=== PATIENT | female | born 2000 | race Caucasian/White ===

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

== ENCOUNTER 2021-01-10 16:18 | Emergency (ER) | payer OTHER, SELFPAY ==
[2021-01-10 16:37] VITALS: BP 129/80; PULSE 82; RESP 21; TEMP 37.1; O2SAT 98; BMI 43.9
[2021-01-10 17:01] LABS: UTC Strep Screen (Rapid) Positive (Negative)
[2021-01-10 17:08] VITALS: BP 000/00; PULSE 79; RESP 18; TEMP 36.6
--- NOTE | 2021-01-10 17:12 | HMH.EDUTC ---
[place] Disposition Clinical Impression: Ingrown nail of great toe of right foot, Strep throat Disposition: Home, Self-Care Condition on Discharge: Good Instructions: DI for Sinusitis Additional Instructions: Drink plenty of fluids. Take tylenol or ibuprofen for pain or fever. Take the medications as directed. Follow up with your regular doctor. GO TO THE ER FOR ANY WORSENING SYMPTOMS I put in a referral to Dr. Blackburn (podiatry). Please call her office and schedule an appointment to have your toe seen about there. Prescriptions: Brompheniramine/Pseudoephed/Dm [Bromfed Dm Cough Syrup] 5 ml PO Q6HP PRN #240 syrup PRN Reason: Cough Transmission Status: Received by [facility] Mupirocin [Bactroban 2% Ointment 22gm tube] 1 applicatio TP TID 7 Days #1 tube Transmission Status: Received by [facility] Cefdinir [Omnicef 300mg Capsule] 300 mg PO BID #20 cap Transmission Status: Received by [facility] Referrals: Provider,Referral, MD [Primary Care Provider] - Time of Disposition: 17:18 Medical Decision Making - Medical Records Medical records reviewed: No: I reviewed the patient's medical records. - Kei Inquiry Pt receiving controlled substance: No Vital Signs: 01/10/21 16:37 01/10/21 17:08 Temperature 98.7 F 98 F Temperature Source Oral Pulse Rate 79 Pulse Rate [Left] 82 Respiratory Rate 21 18 Blood Pressure 000/00 L Blood Pressure [Right Arm] 129/80 Blood Pressure Mean [Right Arm] 96 Blood Pressure Source [Right Arm] Automatic Cuff Blood Pressure Position [Right Arm] Sitting 02 Sat by Pulse Oximetry 98 - Lab Data Lab results reviewed: Yes: I reviewed the patient's lab results. Lab Results 01/10/21 16:33: Strep Scn Rapid Clinic Positive A Orders (Tests/Meds): ED MEDICATIONS Discontinued Medications Generic Name Dose Route Start Last Admin Trade Name Freq PRN Reason Stop Dose Admin Neomycin/Polymyxin/Bacitracin 2 each 01/10/21 17:06 01/10/21 17:07 Neosporin Ointment 0.9gm Udp TP 01/10/21 17:07 2 each ONCE ONE Administration [place] HPI - General Stated complaint: sore throat, cough headache ingrown toe nail Time Seen by Provider: 01/10/21 17:12 Mode of Arrival: Ambulatory Source of Information: Patient Limitations: No Limitations Description of Symptoms (Recalled from Triage Doc. by RN): pt c/o a sore throat, cough, SAHNI, stomache ache and a sore TOE(R great toe). HEENT Symptoms (Recalled from RN notes): Yes (sore throat and SAHNI) Resp Symptoms (Recalled from RN notes): No Skin Symptoms (Recalled from RN notes): No MS Symptoms (Recalled from RN notes): Yes (R great toe is sore) Functional Status (Recalled from RN notes): na - History of Present Illness Provider Complaint: She c/o sore throat, head ache and sinus congestion for the past 5 days. She states that she has been getting these symptoms about once per month for the past several months. She is taking an allergy medication. She also states that she has an ingrown toe nail on her right great toe. This has been a chronic thing, but over the past 1 week it has became infected. - Related Data Previous Rx's Medication Instructions Recorded Sulfamethoxazole/Trimethoprim 1 each PO BID #20 tab 02/11/18 [Bactrim DS tablet] Brompheniramine/Pseudoephed/Dm 5 ml PO Q6HP PRN #240 syrup 01/10/21 [Bromfed Dm Cough Syrup] Cefdinir [Omnicef 300mg Capsule] 300 mg PO BID #20 cap 01/10/21 Mupirocin [Bactroban 2% Ointment 1 applicatio TP TID 7 Days #1 tube 01/10/21 22gm tube] Allergies Allergy/AdvReac Type Severity Reaction Status Date / Time PCN (PENICILLIN) Allergy Mild Uncoded 06/23/17 15:09 - Worker's Comp Is this a Worker's Comp case?: No [facility] History - Hepatitis A Screen Drug use history?: No High risk sexual behaviors?: No History of sexually transmitted infection?: No Currently employed?: No Childcare worker?: No Do you have indo
== END 2021-01-10 17:23 | disposition home or self-care (01) ==
PROVIDERS: Emergency Provider Nurse Practitioner Family
DX: L60.0 Ingrowing nail (principal); J02.0 Streptococcal pharyngitis
CPT/HCPCS: 87880; 99202; G0463

== ENCOUNTER → 2021-04-23 11:24 | Outpatient (CLI) | payer OTHER, SELFPAY ==
[2021-04-23 11:50] LABS: Basophils # 0.1 K/mm3 (0-0.2); Eosinophils # 0.8 K/mm3 (0.0-0.4); Eosinophils % 8.4 % (0.1-12.0); Hemoglobin 14.4 g/dL (12.2-16.2); Lymphocytes # 1.6 K/mm3 (0.7-4.5); Lymphocytes % 15.5 % (10-50); Mean Corpuscular HGB Conc 32.1 g/dL (31.8-35.4); Mean Corpuscular Hemoglobin 27.6 pg (27.0-31.2); Mean Platelet Volume 6.9 fl (7.4-10.4); Monocytes # 0.6 K/mm3 (0.1-1.0); Monocytes % 6.2 % (1.7-9.3); Neutrophils # 6.9 K/mm3 (1.8-7.8); Neutrophils % 68.8 % (37.0-80.0); Platelet Count 488 K/mm3 (142-424); Red Blood Count 5.23 M/mm3 (4.20-5.40); Red Cell Distribution Width 12.7 % (11.5-17.5)
[2021-04-23 12:19] LABS: Chloride 105 mmol/L (98-107); Potassium 4.5 mmoL/L (3.5-5.1); Sodium 140 mmol/L (136-145)
[2021-04-23 12:22] LABS: Alanine Aminotransferase 27 U/L (12-78); Albumin Level 4.2 g/dl (3.5-5.0); Albumin/Globulin Ratio 1.5 (1.1-1.8); Alkaline Phosphatase 71 U/L (38-126); Anion Gap 14.5 mEq/L (5-15); Aspartate Amino Transferase 28 U/L (14-36); Bilirubin,Total 0.3 mg/dl (0.2-1.3); Blood Urea Nitrogen 12 mg/dl (7-17); Carbon Dioxide 25 mmol/L (22.0-30.0); Cholesterol 202 mg/dl (140-200); Estimated Glomerular Filt Rate 107 ml/min (>60); GFR (African American) 129 ML/MIN (>60); Globulin 2.8 g/dL (1.3-3.2); Triglycerides 145 mg/dl (30-150); VLDL Cholesterol 29 mg/dL (0-40)
[2021-04-23 12:23] LABS: Calcium 9.6 mg/dl (8.4-10.2); Chol/HDL Ratio 3.9 (1-3.5); Glucose 88 mg/dl (74-100); HDL Cholesterol 52 mg/dl (40-60)
[2021-04-23 12:36] LABS: Direct LDL Cholesterol 109.04 mg/dL (100-129)
[2021-04-23 12:50] LABS: Hemoglobin A1C 6.8 % (4.0-6.0)
== END ==
PROVIDERS: Visit Provider Internal Medicine Adolescent Medicine
DX: E66.9 Obesity, unspecified (principal); R73.9 Hyperglycemia, unspecified; Z68.30 Body mass index [BMI] 30.0-30.9, adult
CPT/HCPCS: 36415; 80053; 80061; 83036; 85025

== ENCOUNTER 2021-08-15 11:25 | Emergency (ER) | payer OTHER, SELFPAY ==
[2021-08-15 12:06] VITALS: BP 146/91; PULSE 89; RESP 18; TEMP 37.1; O2SAT 98; BMI 42.4
[2021-08-15 13:02] LABS: Strep Scrn Group A (Rapid) Negative (Negative)
--- NOTE | 2021-08-15 13:10 | HMH.EDUTC ---
[facility] Disposition Clinical Impression: Otitis media Qualifiers: Otitis media type: unspecified Laterality: left Qualified Code(s): H66.92 - Otitis media, unspecified, left ear Disposition: Home, Self-Care Condition on Discharge: Good Instructions: Middle Ear Infection Additional Instructions: *Monitor Temp, Over the counter Motrin or Tylenol as directed/as needed Tylenol every 4 hours and Motrin every 6 hours (as long as your family doctor has told you that you can take it) for fever or pain. and straight to ER if unable to lower temp less than 101.0 after medication given *Warm salt water gargles may help to soothe the throat *Throat Lozenges *Warm fluids like tea with honey may help to soothe the throat *Sleep elevated *Humidifier/Vaporizer *Flonase 2 sprays in each nostril daily but be aware that it may take 2-3 days before you notice improvement *Bromfed may cause drowsiness. Know how it effects you (your child) before driving, caring for small child, or sending your child to school. Not other antihistamines/allergy medications while taking bromfed Your throat swab was sent for culture. Those results are typically sent to your primary care. Be sure to follow up in 2-3 days with your family doctor/primary care physician if no improvement so they can review those result and treat if necessary. If you don?t have a primary care doctor, I recommend you get one but in the mean time, you will have to return to a walk in clinic Follow up IMMEDIATELY for new or worsening symptoms or no Noticeable improvement over the next 48-72 hours. 911 for difficulty breathing or swallowing You were tested for today for COVID19 your test result should be back in the next 24-72 hours, you may check your results on the [facility] my health portal if you have trouble logging on you may call support If you are positive someone from the hospital will be calling you Make sure to take your Vitamins Vit. C Vit D and Zinc if you can take them Prescriptions: Fluticasone Propionate [Flonase 50mcg nasal spray 16gm] 1 spr NS DAILY #1 each Transmission Status: Pending to [facility] Cefdinir [Omnicef 300mg Capsule] 300 mg PO BID #20 cap Transmission Status: Pending to [facility] Referrals: Armando Wyatt MD [Primary Care Provider] - As needed Forms: Work/School Release Time of Disposition: 13:20 Medical Decision Making - Kei Inquiry Pt receiving controlled substance: No Kei was queried for this patient: No Vital Signs: 08/15/21 12:06 Temperature 98.7 F Temperature Source Oral Pulse Rate [Left] 89 Respiratory Rate 18 Blood Pressure [Right Arm] 146/91 H Blood Pressure Mean [Right Arm] 109 02 Sat by Pulse Oximetry 98 - Lab Data Lab results reviewed: Yes: I reviewed the patient's lab results. Lab Results 08/15/21 12:11: Group A Strep Rapid Negative Orders (Tests/Meds): ORDERS Category Date Time Status Covid-19 Nasal PCR ([facility]) Routine Lab 08/15/21 12:11 Received Strep Screen Confirmation Stat Micro 08/15/21 12:11 Received [facility] UTC HPI - General Stated complaint: cough,sore throat,stuffy Time Seen by Provider: 08/15/21 13:10 Mode of Arrival: Ambulatory Source of Information: Patient Limitations: No Limitations Description of Symptoms (Recalled from Triage Doc. by RN): pt c/o a dry cough, sore throat, and SAHNI x4 days. HEENT Symptoms (Recalled from RN notes): Yes Resp Symptoms (Recalled from RN notes): Yes Skin Symptoms (Recalled from RN notes): No MS Symptoms (Recalled from RN notes): No Functional Status (Recalled from RN notes): wnl - History of Present Illness Provider Complaint: Patient states that she has been having headache, dry cough, sore throat pain and pressure in her ears and headache States that today she was still feeling bad so she came in to get checked out - Related Data Home Medications Medication Instructions Recorded Confirmed loratadine 10 mg tablet 10 mg PO tab 04/23/21
[2021-08-15 13:24] VITALS: BP 146/91; PULSE 89; RESP 18; TEMP 37.1
== END 2021-08-15 13:27 | disposition home or self-care (01) ==
PROVIDERS: Emergency Provider Nurse Practitioner; PCP Internal Medicine Adolescent Medicine
DX: H66.92 Otitis media, unspecified, left ear (principal); R51.9 Headache, unspecified; Z20.822 Contact with and (suspected) exposure to COVID-19
CPT/HCPCS: 87430; 99203; C9803; G0463; U0003; U0005

== ENCOUNTER → 2021-08-15 15:49 | Outpatient (CLI) | payer OTHER, SELFPAY ==
[2021-08-15 19:13] LABS: Hemoglobin A1C 5.1 % (4.0-6.0)
[2021-08-17 18:20] LABS: C-Peptide 14.2 ng/mL (1.1-4.4)
== END ==
PROVIDERS: PCP Internal Medicine Adolescent Medicine; Visit Provider Internal Medicine Adolescent Medicine
DX: E11.9 Type 2 diabetes mellitus without complications (principal); Z79.84 Long term (current) use of oral hypoglycemic drugs
CPT/HCPCS: 36415; 83036; 83525; 84681

== ENCOUNTER 2023-07-07 06:55 | Outpatient (CLI) | payer OTHER, SELFPAY ==
[2023-07-07 17:29] LABS: Adenovirus,PCR Not Detected (NotDetected); Coronavirus 19, PCR Not Detected (NotDetected); Coronavirus NL63 Not Detected (NotDetected); Coronavirus OC43 Not Detected (NotDetected); Coronovirus HKU1,PCR Not Detected (NotDetected); Human Metapneumovirus Not Detected (NotDetected); Influenza A, PCR Not Detected (NotDetected); Influenza AH1, 2009 Not Detected (NotDetected); Influenza AH1, PCR Not Detected (NotDetected); Influenza AH3,PCR Not Detected (NotDetected); Influenza B, PCR Not Detected (NotDetected); Parainfluenza 1, PCR Not Detected (NotDetected); Parainfluenza 2, PCR Not Detected (NotDetected); Parainfluenza 3, PCR Not Detected (NotDetected); Parainfluenza 4, PCR Not Detected (NotDetected); Respiratory Syncytial Virus Not Detected (NotDetected); Rhinovirus/Enterovirus Not Detected (NotDetected)
[2023-07-07 19:34] LABS: Coronavirus 229E Detected (NotDetected)
== END 2023-07-07 23:59 ==
LOC: LAB.DROPOF 07-08 06:56
PROVIDERS: PCP Internal Medicine Adolescent Medicine; Visit Provider Nurse Practitioner Family
DX: H65.193 Other acute nonsuppurative otitis media, bilateral (principal); J98.8 Other specified respiratory disorders; R05.9 Cough, unspecified; B34.2 Coronavirus infection, unspecified
CPT/HCPCS: 87632; 87635

== ENCOUNTER 2023-08-04 10:45 | Outpatient (CLI) | payer OTHER, SELFPAY ==
--- NOTE | 2023-08-04 10:48 | US_ITS ---
PROCEDURE: US PELVIC CLINICAL INDICATION: COMPARISON: No exams were available for comparison FINDINGS: Transabdominal sonographic images of the pelvis were obtained. Uterus: Anteverted measuring 6.6 cm x 3.1 cm x 4.9 cm. The endometrium measures 14 mm. Right ovary: 4.1 cm x 2.8 cm x 2.4 cm. The right ovary has a polycystic appearance. Left ovary 3.9 cm x 2.6 cm x 1.8 cm. The left ovary has a polycystic appearance. Both ovaries are seen and appear polycystic. Doppler flow to both ovaries is seen. No fluid in the cul-de-sac. IMPRESSION: 1. Anteverted uterus normal in shape and size. 2. The endometrium is likely premenstrual and measures 14 mm. 3. Both ovaries are seen and appear polycystic. 4. No fluid in the cul-de-sac. Dictated by: Yonathan Diego MD 08/04/2023 14:04 Yonathan Diego MD in OV 08/04/2023 14:04
== END 2023-08-04 23:59 ==
LOC: RAD 10:45
PROVIDERS: PCP Internal Medicine Adolescent Medicine; Visit Provider Obstetrics & Gynecology
DX: N93.9 Abnormal uterine and vaginal bleeding, unspecified (principal); Z87.42 Personal history of other diseases of the female genital tract
CPT/HCPCS: 76856

== ENCOUNTER 2023-12-14 12:04 | Outpatient (CLI) | payer OTHER, SELFPAY ==
[2023-12-14 12:42] LABS: Basophils # 0.1 K/mm3 (0-0.2); Basophils % 1.3 % (0.1-2.0); Eosinophils # 0.2 K/mm3 (0.0-0.4); Eosinophils % 2.4 % (0.1-12.0); Hematocrit 42.3 % (37.0-47.0); Hemoglobin 13.7 g/dL (12.2-16.2); Lymphocytes # 1.8 K/mm3 (0.7-4.5); Lymphocytes % 22.9 % (10-50); Mean Corpuscular HGB Conc 32.5 g/dL (31.8-35.4); Mean Corpuscular Hemoglobin 26.6 pg (27.0-31.2); Mean Platelet Volume 7.5 fl (7.4-10.4); Monocytes # 0.5 K/mm3 (0.1-1.0); Monocytes % 5.8 % (1.7-9.3); Neutrophils # 5.3 K/mm3 (1.8-7.8); Neutrophils % 67.6 % (37.0-80.0); Platelet Count 504 K/mm3 (142-424); Red Blood Count 5.15 M/mm3 (4.20-5.40); Red Cell Distribution Width 14.3 % (11.5-17.5); White Blood Count 7.8 K/mm3 (4.8-10.8)
[2023-12-14 13:01] LABS: Alanine Aminotransferase 29 U/L (12-78); Albumin Level 3.8 g/dl (3.5-5.0); Albumin/Globulin Ratio 1.4 (1.1-1.8); Alkaline Phosphatase 61 U/L (38-126); Anion Gap 12.3 mEq/L (5-15); Aspartate Amino Transferase 25 U/L (14-36); Bilirubin,Total 0.4 mg/dl (0.2-1.3); Blood Urea Nitrogen 10 mg/dl (7-17); Calcium 9.6 mg/dl (8.4-10.2); Carbon Dioxide 29 mmol/L (22.0-30.0); Chloride 102 mmol/L (98-107); Chol/HDL Ratio 4.8 (1-3.5); Cholesterol 193 mg/dl (140-200); Estimated Glomerular Filt Rate 69 ml/min (>60); GFR (African American) 83 ML/MIN (>60); Globulin 2.7 g/dL (1.3-3.2); Glucose 82 mg/dl (74-100); HDL Cholesterol 40 mg/dl (40-60); Potassium 4.3 mmoL/L (3.5-5.1); Sodium 139 mmol/L (136-145); Total Protein,Serum 6.5 g/dl (6.3-8.2); Triglycerides 149 mg/dl (30-150); VLDL Cholesterol 30 mg/dL (0-40)
[2023-12-14 13:12] LABS: Direct LDL Cholesterol 111.05 mg/dL (100-129)
[2023-12-14 13:17] LABS: 25-OH Vitamin D, Total 34.2 ng/mL (30-100)
[2023-12-14 13:32] LABS: Thyroid Stimulating Hormone 1.64 uIU/mL (0.465-4.68)
[2023-12-14 13:51] LABS: Vitamin B12 278 pg/mL (239-931)
== END 2023-12-14 23:59 | disposition home or self-care (01) ==
PROVIDERS: PCP Internal Medicine Adolescent Medicine; Visit Provider Physician Assistant
DX: R51.9 Headache, unspecified (principal); Z87.42 Personal history of other diseases of the female genital tract; Z83.3 Family history of diabetes mellitus; Z83.438 Family history of other disorder of lipoprotein metabolism and other lipidemia; E66.01 Morbid (severe) obesity due to excess calories; Z68.42 Body mass index [BMI] 45.0-49.9, adult
CPT/HCPCS: 80050; 80053; 80061; 82306; 82607; 83036; 84443; 85025

== ENCOUNTER 2025-03-22 11:02 | Outpatient (CLI) | payer OTHER, SELFPAY ==
--- OUTSIDE RECORDS SUMMARY | 2024-10-08 17:30 | XMS_ITS ---
Author Organization [facility] Address [address] [facility] [address] [place] [address] Care Team Providers Care Regulatory Affairs Intern Name Role Phone Marilu Herron Primary Care Provider Migration, Provider Unavailable Unavailable Allergies Allergen (clinical drug ingredient) Drug/Non Drug Allergy documented on EMR Reaction Allergy Type Onset Date Status Penicillin swelling Drug Allergy [facility] Encounter Medications Medication SIG (Take, Route, Frequency, Duration) Notes Start Date End Date Status Cetirizine HCl 10 MG 1 tab(s) orally at bedtime; Duration: 30 days Active Vitamin D3 Gummies 50 MCG CHEW AND SWALLOW 1 GUMMY BY MOUTH EVERY DAY; Duration: 90 *Please review and pick correct [facility]ati [facility]. If intended option is not shown, discontinue and re-order from Quick Search* Active Rizatriptan Benzoate 10 MG 1 tab(s) orally once a day; Duration: 30 days 05/07/2024 Active Levothyroxine Sodium 50 MCG (0.05 MG) 1 CAP(S) ORALLY ONCE A DAY; Duration: 30 DAY(S) *Please review and pick correct strength-formulati on from [employer] options. If intended option is not shown, discontinue and re-order from Quick Search* Active NURTEC ODT 75 MG 1 TAB(S) ORALLY ONCE EVERY OTHER DAY; Duration: 30 DAYS *Please review for potential replacement for e-prescription and drug interaction check* Active Slynd 4 MG 1 tab(s) orally once a day Active ONE TOUCH TEST STRIPS N/A FOR DIABETIC TESTING FINGERSTICK ONCE DAILY; Duration: 30 DAYS *Please review for potential replacement for e-prescription and drug interaction check* 01/23/2022 Active Wellbutrin XL 300 MG 1 tab(s) orally every 24 hours; Duration: 90 day(s) Active Acetaminophen 325 MG 1 or 2 tabs orally every 4 hours prn Active Encounters Encounter Location Date Provider Diagnosis [facility] [address] [facility] [address] [facility] [address] [place] [address] 10/08/2024 Provider Migration Seasonal allergies J30.2 and Migraine G43.909 Assessments Encounter Date Diagnosis (ICD Code) Assessment Notes Treatment Notes Treatment Clinical Notes Section Notes 10/08/2024 Seasonal allergies (ICD-10 - J30.2) 10/08/2024 Migraine (ICD-10 - G43.909) Plan Of Treatment Medication Medication Name Sig Start Date Stop Date Notes Cetirizine HCl 10 MG 1 tab(s) orally at bedtime; Duration: 30 days NURTEC ODT 75 MG 1 TAB(S) ORALLY ONCE EVERY OTHER DAY; Duration: 30 DAYS *Please review for potential replacement for e-prescription and drug interaction check* Next Appt Details Provider Name:Armando Wyatt, 03/22/2025 12:15:00 PM, [address] [facility] [address] [facility], [address], [place], [address], Progress Notes * Freida CHAVEZ GDOB:[birth year] (24 yo F)Acc No.[id number]:10/08/2024 Patient: Freida ALANIS Provider: Juan sadler Migration :2000 A ge:23 Y S ex:Female Date:10/08/2024 Address:[address] [place] [address] [place], [place]-[id number] Pcp:Marilu Herron Subjective: * Chief Complaints: * 1 . Multum To Med[employer] Conversion Encounter. * Medical History: * Medications: T aking Acetaminophen 325 MG Tablet 1 or 2 tabs orally every 4 hours prn , Taking Slynd 4 MG Tablet 1 tab(s) orally once a day , Taking ONE TOUCH TEST STRIPS N/A N/A FOR DIABETIC TESTING FINGERSTICK ONCE DAILY , Notes to Pharmacist: *Please review for potential replacement for e-prescription and drug interaction check*, Taking Wellbutrin XL 300 MG Tablet Extended Release 24 Hour 1 tab(s) orally every 24 hours , Taking Vitamin D3 Gummies 50 MCG TABLET, CHEWABLE CHEW AND SWALLOW 1 GUMMY BY MOUTH EVERY DAY , Notes to Pharmacist: *Please review and pick correct strength- formulation from [employer] options. If intended option is not shown, discontinue and re-order from Quick Search*, Taking Rizatriptan Benzoate 10 MG Tablet 1 tab(s) orally once a day , Taking Levothyroxine Sodium 50 MCG (0.05 MG) CAPSULE 1 CAP(S) ORALLY ONCE A DAY , Notes to Pharmacist: *Please review and pick correct strength-formulation from [employer] options. If intended option is not shown, discontinue and re-order from Quick Search* * Allergies: P enicillin: swelling. Objective: * Vitals: Assessment: * Assessment: 1. S easonal allergies - J30.2 2 . M igraine - G43.909 Plan: * Treatment: 2. M igraine Start NURTEC ODT TABLET, DISINTEGRATING, 75 MG, 1 TAB(S), ORALLY, ONCE EVERY OTHER DAY, 30 DAYS, 16, Refills 1, Notes to Pharmacist: *Please review for potential replacement for e-prescription and drug interaction check*. * * Electronic signature of Nery ulloa Migration on 03/22/2025 at 11:08 AM EDT Sign off status: Pending * Provider: Juan sadler Migration Date: 0 10/08/2024 Generated for Paulo palencia/Debbie/Cecilitting on: 0 03/22/2025 11:08 AM EDT
--- OUTSIDE RECORDS SUMMARY | 2025-02-22 10:15 | XMS_ITS ---
Author Organization [facility] Address [address] [facility] [address] [place] [address] Care Team Providers Care Drafter Civil (Cad) Name Role Phone Marilu Herron Primary Care Provider [phone] Armando Wytat [phone] Allergies Allergen (clinical drug ingredient) Drug/Non Drug Allergy documented on EMR Reaction Allergy Type Onset Date Status Penicillin swelling Drug Allergy Active REASON FOR VISIT 4 month follow up Medications Medication SIG (Take, Route, Frequency, Duration) Notes Start Date End Date Status Cetirizine HCl 10 MG 1 tab(s) orally at bedtime; Duration: 30 days Active Levothyroxine Sodium 50 mcg TAKE ONE TABLET BY MOUTH ONCE DAILY; Duration: 30 Active Rizatriptan Benzoate 10 MG 1 tab(s) orally once a day; Duration: 30 days 05/07/2024 Active NURTEC ODT 75 MG 1 TAB(S) ORALLY ONCE EVERY OTHER DAY; Duration: 30 DAYS *Please review for potential replacement for e-prescription and drug interaction check* Active Vitamin D3 Adult Gummies 25 MCG (1000 UT) 1 tablet Orally Once a day; Duration: 90 days Active ONE TOUCH TEST STRIPS N/A FOR DIABETIC TESTING FINGERSTICK ONCE DAILY; Duration: 30 DAYS *Please review for potential replacement for e-prescription and drug interaction check* 01/23/2022 Active Vyvanse 40 MG 1 capsule in the morning Orally Once a day; Duration: 30 days 02/22/2025 Active Slynd 4 MG 1 tab(s) orally once a day Active Vital Signs Temperature 97.7 degrees Fahrenheit 02/23/20 25 Blood pressure systolic 132 mm Hg 02/23/20 25 Blood pressure diastolic 88 mm Hg 025 Heart Rate 120 /min 02/22/2025 Height 61 in 02/22/2025 Weight 269 lbs 02/22/2025 BMI 50.82 kg/m2 02/22/2025 Encounters Encounter Location Date Provider Diagnosis [facility] [address] [place], [place] [address] 02/22/2025 Armando Wyatt ADHD (attention deficit hyperactivity disorder), combined type F90.2 ; Obesity, morbid, BMI 40.0-49.9 E66.01 ; Seasonal allergic rhinitis, unspecified allergic rhinitis trigger J30.2 ; Hypothyroidism, unspecified type E03.9 ; Pervasive developmental disorder F84.9 and Routine medical exam Z00.00 Assessments Encounter Date Diagnosis (ICD Code) Assessment Notes Treatment Notes Treatment Clinical Notes Section Notes 02/22/2025 ADHD (attention deficit hyperactivity disorder), combined type (ICD-10 - F90.2) History of ADHD during school. Did fairly well with controlled substances for stimulant medications but I took her off of these after school. Her weight has been stable but she is not able to lose weight. Does have significant evidence of obesity and probable binge eating. Restart Vyvanse, short-term follow-up. Given complexity and possible side effect profile of Zepbound and other GLP's I feel that Vyvanse is a safer option for her at this point 02/22/2025 Obesity, morbid, BMI 40.0-49.9 (ICD-10 - E66.01) See notes above. Discussed diet and exercise 02/22/2025 Seasonal allergic rhinitis, unspecified allergic rhinitis trigger (ICD-10 - J30.2) 02/22/2025 Hypothyroidism, unspecified type (ICD-10 - E03.9) Clinically euthyroid, had normal thyroid test 3 months ago 02/22/2025 Pervasive developmental disorder (ICD-10 - F84.9) Overall doing well on her own. Not working at this point. Needs continuing fairly substantial support. I do think she would benefit from having her 2 cats. Wrote letter to this effect. 02/22/2025 Routine medical exam (ICD-10 - Z00.00) Non-smoker, does not drive, uses seatbelt in the car, no alcohol, no spot sexually active. See notes above about new medications. Recent labs reviewed. Declines flu shot. Plan Of Treatment Medication Medication Name Sig Start Date Stop Date Notes Vyvanse 40 MG 1 capsule in the mor george Orally Once a day; Duration: 30 days 02/22/2025 Treatment Notes Assessment Notes ADHD (attention deficit hype ractivity disorder), combined type History of ADHD during school. Did fairly well with controlled substances for stimulant medications but I took her off of these after school. Her weight has been stable but she is not able to lose weight. Does have significant evidence of obesity and probable binge eating. Restart Vyvanse, short-term follow-up. Given complexity and possible side effect profile of Zepbound and other GLP's I feel that Vyvanse is a safer option for her at this point Obesity, morbid, BMI 40.0-49.9 See notes above. Discussed diet and exercise Hypothyroidism, unspecified type Clinica lly euthyroid, had normal thyroid test 3 months ago Pervasive developmental disorder Overall doing well on her own. Not working at this point. Needs continuing fairly substantial support. I do think she would benefit from having her 2 cats. Wrote letter to this effect. Routine medical exam Non-smoker, does not drive, uses seatbelt in the car, no alcohol, no spot sexually active. See notes above about new medications. Recent labs reviewed. Declines flu shot. Next Appt Details Follow Up: 4 Weeks, Reason: Provider Name:Armando Wyatt, 03/22/2025 12:15:00 PM, [address] [facility], [address], [place], [address], Progress Notes * Freida CHAVEZ GDOB:[birth year] (24 yo F)Acc No.[id number]:02/22/2025 Progress Notes Patient: Freida ALANIS Provider: Josselin Wyatt MD :2000 A ge:24 Y S ex:Female Date:02/22/2025 Address:[address] [place] [address], [id number] Pcp:Marilu Herron Subjective: * Chief Complaints: * 1 . 4 month follow up. * HPI: g en: Patient is here with her foster grandmother. Overall doing well, did move out to her own apartment about 3 to 4 weeks ago. Feels like she still anxious with this. Overall doing well, wonders about an emotional support letter to keep 2 cats with her. Weight has actually gone down a pound. She has been to see neurology for her headaches and neurologist wonders about whether or not she would be a candidate for Zepbound injections. * Medical History: N ormal and development, ADHD & learning disorder- Had IEP in school- currently unemployed lives with grandmother. * Surgical History: D candace Past Surgical History. * Hospitalization/Major Diagno stic Procedure: H ospitalized at the [facility] for anger issues 2010?. * Family History: F ather: unknown, Bipolar, schizophrenia. M other: alive, Depression, Anxiety and Anger Issues, diagnosed with Diabetes. P aternal Grand Father: unknown. P aternal Grand Mother: unknown. M aternal Grand Father: alive, IDDM, diagnosed with Diabetes. M aternal Grand Mother: alive, IDDM, diagnosed with Diabetes. P aternal uncle: unknown. P aternal aunt: unknown. M aternal uncle: . S iblings: alive, food allergies. 2 sister(s) - healthy. . * Social History: S moking A re you a:: nonsmoker. R ecreational drug use: no. Exercise: no. Home smoke detector use: yes. Caffeine: yes, frequency:Soda rarely. Living Will: No. Alcohol: no. Sexually active: no. Travel outside [place]: no. Occupation: unemployed. * Medications: T aking Slynd 4 MG Tablet 1 tab(s) orally once a day , Taking ONE TOUCH TEST STRIPS N/A N/A FOR DIABETIC TESTING FINGERSTICK ONCE DAILY , Notes to Pharmacist: *Please review for potential replacement for e-prescription and drug interaction check*, Taking Rizatriptan Benzoate 10 MG Tablet 1 tab(s) orally once a day , Taking NURTEC ODT 75 MG TABLET, DISINTEGRATING 1 TAB(S) ORALLY ONCE EVERY OTHER DAY , Notes to Pharmacist: *Please review for potential replacement for e-prescription and drug interaction check*, Taking Cetirizine HCl 10 MG Tablet 1 tab(s) orally at bedtime , Taking Levothyroxine Sodium 50 mcg Tablet TAKE ONE TABLET BY MOUTH ONCE DAILY , Taking Vitamin D3 Adult Gummies 25 MCG (1000 UT) Tablet Chewable 1 tablet Orally Once a day , Discontinued Acetaminophen 325 MG Tablet 1 or 2 tabs orally every 4 hours prn , Discontinued Wellbutrin XL 300 MG Tablet Extended Release 24 Hour 1 tab(s) orally every 24 hours * Allergies: P enicillin: swelling. Objective: * Vitals: N urse: be, Pain: 3, Temp: 97.7, RR: 20, HR: 120, BP: 132/88, Ht: 61, Wt: 269, BMI:50.82. * Examination: G eneral Examination: General P leasant and Cooperative, NAD on RA,. Oral cavity: M oist membranes. Chest: n ormal shape and expansion. Heart: R egular Rate and Rhythm, no murmur, rubs or gallops. HEENT: p harynx and tonsils normal, TM's normal. Lungs: L CTAB, No wheezes, crackles or rhonchi, Good air movement,. Abdomen: S oft, NTND, BSNA, No organomegaly or peritoneal signs.. Neurologic Exam: n o focal signs,, normal sensation, strength, tone and reflexes,, Alert and oriented x 3. Skin: w ithout acute rashes. Peripheral pulses: n ormal (2+) bilaterally. Back: n ormal,. Extremities: n ormal ROM,, no clubbing, no edema,, no foot lesions,. neck s upple,, no thyromegaly,, no lymphadenopathy,. Psych N ormal Mood/Affect. diabetic foot exam V isual exam of foot performed: Y es. Neck s upple, no lymphadenopathy. General Appearance: N AD, pleasant. Assessment: * Assessment: 1. A DHD (attention deficit hyperactivity disorder), combined type - F90.2 (Primary) 2 . O besity, morbid, BMI 40.0-49.9 - E66.01 3 . S easonal allergic rhinitis, unspecified allergic rhinitis trigger - J30.2 4 . H ypothyroidism, unspecified type - E03.9 5 . P ervasive developmental disorder - F84.9 ?6. R outine medical exam - Z00.00 Plan: * Treatment: 2. O besity, morbid, BMI 40.0-49.9 Notes: See notes above. Discussed diet and exercise 3. H ypothyroidism, unspecified type Notes: Clinically euthyroid, had normal thyroid test 3 months ago 4. P ervasive developmental disorder Notes: Overall doing well on her own. Not working at this point. Needs continuing fairly substantial support. I do think she would benefit from having her 2 cats. Wrote letter to this effect. 5. R [facility] medical exam Notes: Non-smoker, does not drive, uses seatbelt in the car, no alcohol, no spot sexually active. See notes above about new medications. Recent labs reviewed. Declines flu shot. * Follow Up: 4 Weeks * * Sign off status: Completed true * Provider: Josselin Wyatt MD Date: 0 02/22/2025 Generated for Paulo palencia/Debbie/Cecilitting on: 0 03/22/2025 11:07 AM EDT History and Physical Notes * HPI (History of Present Illness) Category Sub-Category Detail Notes Category Not es gen Patient is here with her foster grandmother. Overall doing well, did move out to her own apartment about 3 to 4 weeks ago. Feels like she still anxious with this. Overall doing well, wonders about an emotional support letter to keep 2 cats with her. Weight has actually gone down a pound. She has been to see neurology for her headaches and neurologist wonders about whether or not she would be a candidate for Zepbound injections. Examination Category Sub-Category Detail Notes Category Not es General Examination HEENT: pharynx and tonsils normal, TM's normal Neck supple, no lymphaden opathy Heart: Regular Rate and Rhy thm, no murmur, rubs or gallops Lungs: LCTAB, No wheezes, c rackles or rhonchi, Good air movement, Abdomen: Soft, NTND, BSNA, No organomegaly or peritoneal signs. Extremities: normal ROM,, no club evan, no edema,, no foot lesions, General Appearance: NAD, pleasant Skin: without acute rashes Neurologic Exam: no focal signs,, nor mal sensation, strength, tone and reflexes,, Alert and oriented x 3 Oral cavity: Moist membranes Peripheral pulses: normal (2+) bilatera lly Back: normal, Chest: normal shape and exp ansion neck supple,, no thyromeg booker,, no lymphadenopathy, General Pleasant and Coopera tive, NAD on RA, Psych Normal Mood/Affect diabetic foot exam Visual exam of foot performed :: Yes
--- OUTSIDE RECORDS SUMMARY | 2025-03-22 11:08 | XMS_ITS | Patient Health Record ---
Author Organization [facility] Address [address] [place] [address] Care Team Providers Care Car Spotter Name Role Phone Marilu Herron Primary Care Provider [phone] Armando Wyatt Unavailable [phone] Migration, Provider Unavailable Unavailable Allergies Allergen (clinical drug ingredient) Drug/Non Drug Allergy documented on EMR Reaction Allergy Type Onset Date Status Penicillin swelling Drug Allergy Active Results Component Value Reference Range Notes VITAMIN D,25-OH,TOTAL,IA (17 306) Reviewed date:11/18/2024 08:39:48 AM Interpretation: Performing Lab:[place], [facility] Wade Dinh Notes/Report: NON-FASTING; NON-FASTING; NON-FASTING; NON-FASTING; NON-FAST VITAMIN D,25-OH,TOTAL,IA 51 30-100 ng/mL Vitamin D Status 25-OH Vitamin D: Deficiency: <20 ng/mL Insufficiency: 20 - 29 ng/mL Optimal: > or = 30 ng/mL For 25-OH Vitamin D testing on patients on D2-supplementation and patients for whom quantitation of D2 and D3 fractions is required, the QuestAssureD(TM) 25-OH VIT D, (D2,D3), LC/MS/MS is recommended: order code 16652 (patients >2yrs). See Note 1 Note 1 For additional information, please refer to http://education.Onefeat.[facility] ([facility])/faq/LML184 (This link is being provided for informational/ educational purposes only.) HEMOGLOBIN A1c (496) Reviewed date:11/18/2024 08:39:48 AM Interpretation: Performing Lab:[place] [email or web address] [id number] [employer], Jimmy ForteQbytXR[address] Wade Dinh Notes/Report: NON-FASTING; NON-FASTING; NON-FASTING; NON-FASTING; NON-FAST HEMOGLOBIN A1c 5.3 <5.7 % For the purpose of screening for the presence of diabetes: <5.7% Consistent with the absence of diabetes 5.7-6.4% Consistent with increased risk for diabetes (prediabetes) > or =6.5% Consistent with diabetes This assay result is consistent with a decreased risk of diabetes. Currently, no consensus exists regarding use of hemoglobin A1c for diagnosis of diabetes in children. According to [place] Diabetes Association (ADA) guidelines, hemoglobin A1c <7.0% represents optimal control in non- diabetic patients. Different metrics may apply to specific patient populations. Standards of Medical Care in Diabetes(ADA). CBC (INCLUDES DIFF/PLT) (639 9) Reviewed date:11/18/2024 08:39:47 AM Interpretation: Performing Lab:[place] [email or web address] [id number] [employer], MovingWorldsYjpqWH[address] Wade Dinh Notes/Report: NON-FASTING; NON-FASTING; NON-FASTING; NON-FASTING; NON-FAST WHITE BLOOD CELL COUNT 8.6 3.8-10.8 Thousand/ uL RED BLOOD CELL COUNT 5.20 3.80-5.10 Million/uL HEMOGLOBIN 14.3 11.7-15.5 g/dL HEMATOCRIT 44.9 35.0-45.0 % MCV 86.3 80.0-100.0 fL MCH 27.5 27.0-33.0 pg MCHC 31.8 32.0-36.0 g/dL For adults, a slight decrease in the calculated MCHC value (in the range of 30 to 32 g/dL) is most likely not clinically significant; however, it should be interpreted with caution in correlation with other red cell parameters and the patient's clinical condition. RDW 13.8 11.0-15.0 % PLATELET COUNT 525 140-400 Thousand/uL MPV 9.6 7.5-12.5 fL ABSOLUTE NEUTROPHILS 6115 0286-1313 cells/uL ABSOLUTE LYMPHOCYTES 7067 016-7048 cells/uL ABSOLUTE MONOCYTES 697 200-950 cells/uL ABSOLUTE EOSINOPHILS 155 15-500 cells/uL ABSOLUTE BASOPHILS 77 0-200 cells/uL NEUTROPHILS 71.1 LYMPHOCYTES 18.1 MONOCYTES 8.1 EOSINOPHILS 1.8 BASOPHILS 0.9 COMPREHENSIVE METABOLIC PANE L (32894) Reviewed date:11/18/2024 08:39:47 AM Interpretation: Performing Lab:[place] documistice[address] [place], [place] YbktHC[address] Wade Dinh Notes/Report: NON-FASTING; NON-FASTING; NON-FASTING; NON-FASTING; NON-FAST GLUCOSE 80 65-99 mg/dL Fasting reference interval UREA NITROGEN (BUN) 10 7-25 mg/dL CREATININE 1.03 0.50-0.96 mg/dL EGFR 78 > OR = 60 mL/min/1.73m2 BUN/CREATININE RATIO 10 6-22 (calc) SODIUM 140 135-146 mmol/L POTASSIUM 4.9 3.5-5.3 mmol/L CHLORIDE 104 98-110 mmol/L CARBON DIOXIDE 27 20-32 mmol/L CALCIUM 9.8 8.6-10.2 mg/dL PROTEIN, TOTAL 7.1 6.1-8.1 g/dL ALBUMIN 4.3 3.6-5.1 g/dL GLOBULIN 2.8 1.9-3.7 g/dL (calc) ALBUMIN/GLOBULIN RATIO 1.5 1.0-2.5 (calc) BILIRUBIN, TOTAL 0.4 0.2-1.2 mg/dL ALKALINE PHOSPHATASE 68 31-125 U/L AST 15 10-30 U/L ALT 22 6-29 U/L LIPID PANEL, STANDARD (7600) Reviewed date:11/18/2024 08:39:47 AM Interpretation: Performing Lab:[place] documistice13[address] [employer], Movie MouthUreaPF[address] Wade Dinh Notes/Report: NON-FASTING; NON-FASTING; NON-FASTING; NON-FASTING; NON-FAST CHOLESTEROL, TOTAL 190 <200 mg/dL HDL CHOLESTEROL 37 > OR = 50 mg/dL TRIGLYCERIDES 197 <150 mg/dL LDL-CHOLESTEROL 121 Reference range: <100 Desirable range <100 mg/dL for primary prevention; <70 mg/dL for patients with CHD or diabetic patients with > or = 2 CHD risk factors. LDL-C is now calculated using the Jossy calculation, which is a validated novel method providing better accuracy than the Friedewald equation in the estimation of LDL-C. Vinicio LARSON et al. ALPESH. 2013;310(92): 2386-5763 (http://[employer].SenseData/faq/YYQ268) CHOL/HDLC RATIO 5.1 <5.0 (calc) NON HDL CHOLESTEROL 153 <130 mg/dL (calc) For patients with diabetes plus 1 major ASCVD risk factor, treating to a non-HDL-C goal of <100 mg/dL (LDL-C of <70 mg/dL) is considered a therapeutic option. THYROID PANEL WITH TSH (7444 ) Reviewed date:11/18/2024 08:39:47 AM Interpretation: Performing Lab:[place], [employer] [address], [facility] HospitalYxzuDA[address] Wade Dinh Notes/Report: NON-FASTING; NON-FASTING; NON-FASTING; NON-FASTING; NON-FAST T3 UPTAKE 30 22-35 % T4 (THYROXINE), TOTAL 9.1 5.1-11.9 mcg/dL FREE T4 INDEX (T7) 2.7 1.4-3.8 TSH 0.94 Reference Range > or = 20 Years 0.40-4.50 Ranges First trimester 0.26-2.66 Second trimester 0.55-2.73 Third trimester 0.43-2.91 Medications Medication SIG (Take, Route, Frequency, Duration) [...] for e-prescription and drug interaction check* Active ONE TOUCH TEST STRIPS N/A FOR DIABETIC TESTING FINGERSTICK ONCE DAILY; Duration: 30 DAYS *Please review for potential replacement for e-prescription and drug interaction check* 01/23/2022 Active Vyvanse 40 MG 1 capsule in the morning Orally Once a day; Duration: 30 days 02/22/2025 Active Slynd 4 MG 1 tab(s) orally once a day Active Vitamin D3 Adult Gummies 25 MCG (1000 UT) 1 tablet Orally Once a day; Duration: 90 days Active Immunizations Vaccine Route Administration Date Status Comme nts Adacel (Tdap) VFC IM Intramuscular 01/27/2013 Administered Flublok IM Intramuscular 05/26/2022 Administered Flublok IM Intramuscular 02/29/2024 Administered FLUZONE 6MO - OLDER IM Intramuscular 04/27/2023 Administer ed Menactra VFC IM Intramuscular 01/27/2013 Administered Varivax (Varicella) VFC SC Subcutaneous 01/27/2013 Adminis tered Problems Problem Type SNOMED Code ICD Code Onset Dates Problem Status W/U Status Risk Notes Problem Morbid obesity (disorder) (961795532) Morbid (severe) obesity due to excess calories (E66.01) Active confirmed Problem Vitamin D deficiency (25081500) Vitamin D deficiency (E55.9) Active confirmed Problem Seasonal allergy (003096757) Seasonal allergies (J30.2) Active confirmed Problem Attention deficit hyperactivity disorder (939675516) ADHD (attention deficit hyperactivity disorder), combined type (F90.2) Active confirmed Problem Morbid obesity (795653036) Obesity, morbid, BMI 40.0-49.9 (E66.01) Active confirmed Problem Migraine (88549975) Migraine (G43.909) Active confirmed Problem Obesity (175907979) Obesity (BMI 30-39.9) (E66.9) Active confirmed Problem Hypothyroidism (78162009) Hypothyroidism, unspecified type (E03.9) Active confirmed Problem Insulin resistance (773112753) Insulin resistance (E88.81) Active confirmed Problem Hearing loss (43339251) Hearing loss, unspecified laterality (H91.90) Active confirmed Problem Seasonal allergic rhinitis (590262728) Seasonal allergic rhinitis, unspecified allergic rhinitis trigger (J30.2) Active confirmed Problem Body mass index 40+ - severely obese (113179582) Body mass index [BMI] 45.0-49.9, adult (Z68.42) Active confirmed Problem Body mass index 40+ - morbidly obese (078492045) Body mass index [BMI] 50.0-59.9, adult (Z68.43) Active confirmed Problem Pervasive developmental disorder (86702511) Pervasive developmental disorder (F84.9) Active confirmed Vital Signs Heart Rate 120 /min 02/22/2025 Temperature 97.7 degrees Fahrenheit 02/22/2025 Blood pressure diastolic 88 mm Hg 02/22/2025 Height 61 in 02/22/2025 Blood pressure systolic 132 mm Hg 02/22/2025 Weight 269 lbs 02/22/2025 BMI 50.82 kg/m2 02/22/2025 Encounters Encounter Location Date Provider Diagnosis [facility] [address] [place], [place] [address] 10/08/2024 Provider Migration Seasonal allergies J30.2 and Migraine G43.909 [facility] [address] [place], [place] [address] 04/13/2024 Armando Wyatt ADHD (attention deficit hyperactivity disorder), combined type F90.2 and Migraine G43.909 [facility] [address] [place] [address] 08/15/2024 Armando Wyatt ADHD (attention deficit hyperactivity disorder), combined type F90.2 and Migraine G43.909 [facility] [address] [place] [address] 11/16/2024 Armando Wyatt Insulin resistance syndrome E88.810 ; Obesity, morbid, BMI 40.0-49.9 E66.01 ; Hypothyroidism, unspecified type E03.9 ; Vitamin D deficiency E55.9 ; ADHD (attention deficit hyperactivity disorder), combined type F90.2 and Pervasive developmental disorder F84.9 [facility] [address] [place] [address] 02/22/2025 Armando Besson ADHD (attention deficit hyperactivity disorder), combined type F90.2 ; Obesity, morbid, BMI 40.0-49.9 E66.01 ; Seasonal allergic rhinitis, unspecified allergic rhinitis trigger J30.2 ; Hypothyroidism, unspecified type E03.9 ; Pervasive developmental disorder F84.9 and Routine medical exam Z00.00 [facility] [address] [place] [address] 05/06/2024 Armando Wyatt Migraine G43.909 Assessments Encounter Date Diagnosis (ICD Code) Assessment Notes Treatment Notes Treatment Clinical Notes Section Notes 04/13/2024 ADHD (attention deficit hyperactivity disorder), combined type (ICD-10 - F90.2) ongoing treatment with wellbutrin... stable situation 04/13/2024 Migraine (ICD-10 - G43.909) Has failed triptans... trial of nurtec... 08/15/2024 ADHD (attention deficit hyperactivity disorder), combined type (ICD-10 - F90.2) ongoing treatment with wellbutrin... stable situation 08/15/2024 Migraine (ICD-10 - G43.909) Has failed triptans... trial of nurtec... 10/08/2024 Seasonal allergies (ICD-10 - J30.2) 10/08/2024 Migraine (ICD-10 - G43.909) 11/16/2024 Obesity, morbid, BMI 40.0-49.9 (ICD-10 - E66.01) 11/16/2024 Insulin resistance syndrome (ICD-10 - E88.810) Check labs including A1c, lipid and vitamins for her insulin resistance syndrome. If A1c is elevated would be a good candidate for GLP issues 02/22/2025 ADHD (attention deficit hyperactivity disorder), combined [...] See notes above. Discussed diet and exercise 05/06/2024 Migraine (ICD-10 - G43.909) 02/22/2025 Seasonal allergic rhinitis, unspecified allergic rhinitis trigger (ICD-10 - J30.2) 11/16/2024 Hypothyroidism, unspecified type (ICD-10 - E03.9) Clinically appears euthyroid 11/16/2024 Vitamin D deficiency (ICD-10 - E55.9) 02/22/2025 Hypothyroidism, unspecified type (ICD-10 - E03.9) Clinically euthyroid, had normal thyroid test 3 months ago 02/22/2025 Pervasive developmental disorder (ICD-10 - F84.9) Overall doing well on her own. Not working at this point. Needs continuing fairly substantial support. I do think she would benefit from having her 2 cats. Wrote letter to this effect. 11/16/2024 ADHD (attention deficit hyperactivity disorder), combined type (ICD-10 - F90.2) 11/16/2024 Pervasive developmental disorder (ICD-10 - F84.9) Seems to be in a safe home environment. 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 Unable to work at this point. Continues to live with family members. Safe home environment. Will continue to watch closely 02/22/2025 Routine medical exam (ICD-10 - Z00.00) Non-smoker, does not drive, uses seatbelt in the car, no alcohol, no spot sexually active. See notes above about new medications. Recent labs reviewed. Declines flu shot. Plan Of Treatment Pending Test Test Name Order Date Rapid Strep 07/08/2012 Dietary Consult 05/21/2021 H-STREP SCREEN (RAPID) 08/04/2011 M-Hemoglobin A1C 05/21/2021 M-C-Peptide 05/21/2021 M-Vitamin D 25 Hydroxy 12/11/2023 M-Insulin Level Total 05/21/2021 Next Appt Details Provider Name:Armando Wyatt, 03/22/2025 12:15:00 PM, [address], [place], [address], Insurance Providers Payer Name Payer Address Payer Phone Subscriber Number Group Number Insured Name Patient Relationship to Insured Coverage Start Date Coverage End Date [employer] [facility] [address] [address] [place] [address] [id number] Freida Chavez Self - patient is the insured Medical (General) History Medical History History ICD Code Normal and development ADHD & learning disorder- Blank d IEP in school-currently unemployed lives with grandmother Surgical History Surgery Date(Month/Year) Hospitalization History Reason Date(Month/Year) Hospitalized at [facility] for anger iss ues 2010?
--- OUTSIDE RECORDS SUMMARY | 2025-03-22 11:08 | XMS_ITS | Clinical Summary ---
Author Organization [facility] Address [address] [place] [address] Care Team Providers Care Security Orderly Name Role Phone Genevieve Leggett DO Primary Care Provider [phone] Family History Medical History Relation Name Comments Bipolar disorder Father Schizophrenia Father Relation Name Status Comments Father Social History Tobacco Use Types Packs/Day Years Used Date Smoking Tobacco: Never Assessed Comments Unknown Sex and Gender Information Value Date Recorded Sex Assigned at Not on file Legal Sex Female 8:04 PM EDT Gender Identity Not on file Sexual Orientation Not on file Last Filed Vital Signs Vital Sign Reading Time Taken Comments Blood Pressure - - Pulse - - Temperature - - Respiratory Rate - - Oxygen Saturation - - Inhaled Oxygen Concentration - - Weight 98.9 kg (217 lb 15.9 oz) 017 10:45 AM EDT Height 154.9 cm (5' 1 ) 09/17/2016 10:4 5 AM EDT Body Mass Index 41.19 09/17/2016 10:45 AM EDT Plan of Treatment Not on file Care Teams Security Orderly Relationship Specialty Start Date End Date Genevieve Leggett, DO [address] [facility] [address] [place] [address] PCP - General 11/16/20
[2025-03-22 13:12] LABS: Thyroid Stimulating Hormone 4.16 uIU/mL (0.465-4.68)
[2025-03-22 13:23] LABS: Hemoglobin A1C 5.3 % (4.0-6.0)
--- NOTE | 2025-03-22 14:33 | US_ITS ---
PROCEDURE: US PELVIC CLINICAL INDICATION: N91.1 - Secondary amenorrhea COMPARISON: US US PELVIC from 08/04/2023 FINDINGS: Transverse sonographic images of the pelvis were obtained. (Patient declined a transvaginal ultrasound ) UTERUS: 7.2cm x 6.1cmx 3.4cm anteverted with a combined endometrial thickness of 3.6-4.7 mm. LEFT OVARY: 4.0cmx2.5 cmx1.7cm with a volume of 9ml. There are multiple small peripheral follicles giving the ovary a polycystic appearance. RIGHT OVARY: 4.3cmx 2.6 cmx2.3cm with a volume of 13.5ml. Both ovaries are seen and appear normal. Doppler flow to both ovaries are seen. There is no fluid in the cul-de-sac. IMPRESSION: 1. Anteverted uterus normal in shape and size. The lower uterine segment is more difficult to visualize secondary to shadowing. 2. The endometrium appears thin and measures 3.6-4.7 mm. 3. Both ovaries are seen and appear normal. The right ovary is more difficult to visualized transabdominally. The left ovary appears polycystic 4. No fluid in the cul-de-sac. Dictated by: Yonathan Diego MD 03/23/2025 07:04 Yonathan Diego MD in OV 03/23/2025 07:04
[2025-03-23 11:21] LABS: Insulin Level Total 14.0 uIU/mL (2.6-24.9)
[2025-03-23 12:23] LABS: FSH 4.3 mIU/mL (.); Testosterone,Total 41 ng/dL (13-71)
== END 2025-03-22 23:59 | disposition home or self-care (01) ==
PROVIDERS: PCP Internal Medicine Adolescent Medicine; Visit Provider Obstetrics & Gynecology
DX: N85.4 Malposition of uterus (principal); E28.2 Polycystic ovarian syndrome
CPT/HCPCS: 36415; 76856; 83001; 83036; 83525; 84403; 84443; 84702